=== PATIENT | male | born 1965 | race Caucasian/White ===

== ENCOUNTER 2017-03-07 20:42 | Emergency (ER) | payer SELFPAY ==
--- NOTE | 2017-03-07 20:56 | PDOC ---
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 The patient states that he was sitting at the movie theater and felt the urge to use the bathroom. He was able to pee a little bit and not has not been able to pee since then. He does report that he has not been taking his flomax religiously in the last few days but took a dose around 3 PM. He denies any back pain. He denies any dysuria, hematuria, or frequency. PAST MEDICAL HISTORY: no significant history PAST SURGICAL HISTORY: no significant history FAMILY HISTORY: no pertinent history HISTORY: Pt lives with family and is employed. MEDICATIONS: reviewed ALLERGIES: As per nursing notes Adult ROS General: No fevers or chills, no weakness, no weight loss HEENT: No change in vision. No sore throat,. No ear pain CardioVascular: No chest pain or shortness of breath Respiratory:No cough, or wheezing. Gastrointestinal: no nausea, vomiting, diarrhea or constipation, No rectal bleeding Genitourinary: (+)urinary retention. No dysuria, hematuria, or frequency Musculoskeletal: No joint or muscle pain or swelling Neurologic: No headache, vertigo, dizziness or loss of consciousness Psychiatric: nor depression Skin: No rashes or easy bruising Endocrine: no increased thirst or abnormal weight change Allergic: no skin or latex allergy All other systems reviewed and normal Basic PE GENERAL: The patient is awake, alert, and fully oriented, in no acute distress. HEAD: Normal with no signs of trauma. EYES: Pupils equal, round and reactive to light, extraocular movements intact, sclera anicteric, conjunctiva clear. EXTREMITIES: Normal range of motion, no edema. GASTROINTESTINAL: No suprapubic tenderness or enlarged bladder. MSK: No CVA or flank tenderness. NEUROLOGICAL: Normal speech, normal gait. PSYCH: Normal mood, normal affect. SKIN: Warm, Dry, normal turgor, no rashes or lesions noted. <Ana Bland - Last Filed: 03/07/17 21:25> - General History Source: Patient Exam Limitations: No Limitations - History of Present Illness Initial Comments: 03/07/17 21:31 A portion of this note was documented by scribe services under my direction. I have reviewed the details of the note, within reason, and agree with the documentation. The case summary and management plan written by me. Assessment and plan: This is a 52-year-old male who comes in with urinary retention. Patient has history of urinary retention in the past and is on Flomax but says he has not been compliant with his Flomax and has had in increase in his by mouth intake of liquids. Patient had a Cardenas placed with approximately 1 L of fluid. Urinalysis was sent that was negative for any infection. 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 Patient will return if he is again in urinary retention. Patient is visiting this country for the holidays from [place] and is scheduled to drive home to [place] in 3 days. <Michael Singh I - Last Filed: 03/07/17 21:33> - General Chief Complaint: Pain, Acute Stated Complaint: URINARY RETENTION Time Seen by Provider: 03/07/17 20:54 Review of Systems - Review of Systems Able to Perform ROS?: Yes <Ana Bland - Last Filed: 03/07/17 21:25> ED Treatment Course - ADDITIONAL ORDERS Additional order review: Laboratory Results 03/07/17 21:00 Urine Color Yellow Urine Appearance Clear Urine pH 6.0 Ur Specific [place] 1.010 Urine Protein Negative Urine Glucose (UA) Negative Urine Ketones Negative Urine Blood Negative Urine Nitrite Negative Urine Bilirubin Negative Urine Urobilinogen 0.2 Ur Leukocyte Esterase Negative <Ana Bland - Last Filed: 03/07/17 21:25> *DC/Admit/Observation/Transfer - Attestations Scribe Attestion: 03/07/17 21:28 Documentation prepared by Ana Bland, acting as biomedical instrument technician for Michael Singh MD. <Ana Bland - Last Filed: 03/07/17 21:25> - Discharge Dispostion Admit: No <Michael Singh I - Last Filed: 03/07/17 21:33> Diagnosis at time of Disposition: Urinary retention - Discharge Dispostion Disposition: HOME Condition at time of disposition: Stable - Patient Instructions Printed Discharge Instructions: DI for Urinary Retention in Men Additional Instructions: Make sure you take your Flomax as prescribed, If you're unable to urinate return to the emergency room and will replace the Cardenas, Return to the emergency department immediately with ANY new, persistent or worsening symptoms. Continue any medications as previously prescribed by your physician. You should follow up with your primary doctor as soon as possible regarding today's emergency department visit. . Please make sure your doctor reviews the results of your emergency evaluation. Thank you for coming to the Emergency Department today for your care. It was a pleasure to see you today. Please note that your evaluation is INCOMPLETE until you follow-up with your doctor.
[2017-03-07 21:08] LABS: URINE APPEARANCE Clear; URINE BILIRUBIN Negative (NEGATIVE); URINE BLOOD Negative (NEGATIVE); URINE GLUCOSE (UA) Negative (NEGATIVE); URINE KETONE Negative (NEGATIVE); URINE LEUK ESTERASE Negative (NEGATIVE); URINE NITRITE Negative (NEGATIVE); URINE PROTEIN Negative (NEGATIVE); URINE UROBILINOGEN 0.2 (0.2-1.0)
[2017-03-07 21:09] LABS: URINE COLOR YELLOW
[2017-03-07 21:54] VITALS: BP 164/107; PULSE 90; TEMP 97.7; BMI 23.7
== END 2017-03-07 21:58 | disposition home or self-care (01) ==
LOC: FER 20:42
DX: R33.9 Retention of urine, unspecified (principal)
CPT/HCPCS: 81003; 99281-25